=== PATIENT | male | born 1965 | race African-American/Black ===

== ENCOUNTER 2023-05-08 04:51 | Day surgery (SDC) | payer OTHER ==
[2023-05-04 12:09] VITALS: BMI 32.6
[2023-05-08 11:00] VITALS: TEMP 98
[2023-05-08 11:46] VITALS: BP 142/87; PULSE 73; RESP 17
== END 2023-05-08 11:45 | disposition home or self-care (01) ==
LOC: JASU-ENDO 04:51
PROVIDERS: ATTEND Internal Medicine Gastroenterology
PROC: 0DB78ZX Excision of Stomach, Pylorus, Via Natural or Artificial Opening Endoscopic, Diagnostic (ICD-10-PCS; 2023-05-08)
PROC: 0DB68ZX Excision of Stomach, Via Natural or Artificial Opening Endoscopic, Diagnostic (ICD-10-PCS; principal; 2023-05-08 09:00)
DX: K29.50 Unspecified chronic gastritis without bleeding (principal); B96.81 Helicobacter pylori [H. pylori] as the cause of diseases classified elsewhere; K31.A11 Gastric intestinal metaplasia without dysplasia, involving the antrum
CPT/HCPCS: 88305-TC; 88341-TC; 88342-TC

== ENCOUNTER 2023-08-31 04:38 | Day surgery (SDC) | payer OTHER ==
[2023-08-28 15:57] VITALS: BMI 34.3
[2023-08-31 10:40] VITALS: TEMP 98.1
[2023-08-31 11:15] VITALS: PULSE 77
[2023-08-31 11:16] VITALS: BP 106/88; RESP 17
== END 2023-08-31 11:18 | disposition home or self-care (01) ==
LOC: JASU-ENDO 04:38
PROVIDERS: ATTEND Internal Medicine Gastroenterology
PROC: 0DBN8ZX Excision of Sigmoid Colon, Via Natural or Artificial Opening Endoscopic, Diagnostic (ICD-10-PCS; 2023-08-31)
PROC: 0DBN8ZX Excision of Sigmoid Colon, Via Natural or Artificial Opening Endoscopic, Diagnostic (ICD-10-PCS; principal; 2023-08-31 10:15)
DX: Z12.11 Encounter for screening for malignant neoplasm of colon (principal); D12.5 Benign neoplasm of sigmoid colon; K63.5 Polyp of colon; K64.8 Other hemorrhoids; I10 Essential (primary) hypertension
CPT/HCPCS: 88305-TC

== ENCOUNTER 2023-09-19 16:03 | Emergency (ER) | payer OTHER ==
[2023-09-19 16:38] VITALS: BP 141/87; PULSE 82; RESP 17; TEMP 98.7; BMI 34.3
[2023-09-19 18:59] LABS: BASO % 1.4 % (0-2.0); EOS % 1.2 % (0-4.5); HEMATOCRIT 47.9 % (35.4-49); HEMOGLOBIN 15.4 GM/dL (11.7-16.9); LYMPH % 42.6 % (8-40); MCH 25.2 pg (25.7-33.7); MCHC 32.1 g/dl (32.0-35.9); MEAN CELL VOLUME 78.4 fl (80-96); MEAN PLT VOLUME 7.7 fl (7.5-11.1); MONO % 9.9 % (3.8-10.2); NEUT % 44.9 % (42.8-82.8); PLATELET COUNT 352 10^3/uL (134-434); RBC 6.12 M/mm3 (4.00-5.60); WHITE BLOOD COUNT 8.3 K/mm3 (4.0-10.0)
[2023-09-19 19:24] LABS: CALCIUM 9.5 mg/dL (8.5-10.1)
[2023-09-19 19:25] LABS: ALBUMIN 4.2 g/dl (3.4-5.0); BLOOD UREA NITROGEN 23.9 mg/dL (7-18)
[2023-09-19 19:28] LABS: CREATININE 1.2 mg/dL (0.55-1.3)
[2023-09-19 19:29] LABS: TOT PROT 8.5 g/dl (6.4-8.2)
[2023-09-19 19:30] LABS: BILIRUBIN,TOTAL 0.8 mg/dL (0.2-1)
== END 2023-09-19 20:09 | disposition home or self-care (01) ==
LOC: JER 16:03
DX: K64.9 Unspecified hemorrhoids (principal)
CPT/HCPCS: 36415; 80053; 82272; 85025; 99283-25